=== PATIENT | male | born 1960 | race Caucasian/White ===

== ENCOUNTER 2019-06-20 15:18 | Inpatient (IN) | payer MEDICARE, OTHER ==
[~2019-06-20] VITALS: Ht 182.9 cm; Wt 108.9 kg
[2019-06-20] MEDS ORDERED: LURA40TA PO (15:54)
[2019-06-20] MEDS ORDERED: RISP4TAB17 PO (15:54)
[2019-06-20 16:58] VITALS: BP 131/71
[2019-06-20] MEDS ORDERED: LORAZEPAM 0.5 MG TABLET PO PRN (17:00)
[2019-06-20] MEDS ORDERED: ZOLPIDEM TARTRATE 5 MG TABLET PO PRN (17:00)
[2019-06-20] MEDS ORDERED: MAG HYDROX/AL HYDROX/SIMETH 30 ML UDC PO PRN (17:00)
[2019-06-20] MEDS ORDERED: MAGNESIUM HYDROXIDE 30 ML UDC PO PRN (17:00)
[2019-06-20] MEDS ORDERED: BLOOD SUGAR DIAGNOSTIC 1 EACH STRIP IN ONE (17:00)
[2019-06-20] MEDS ORDERED: ACETAMINOPHEN 325 MG TABLET PO PRN (17:00)
--- NOTE | 2019-06-20 17:11 | NUR ---
RN NOTE: BS 97; NO INSULIN NEEDED
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
[2019-06-20 20:49] VITALS: BP 145/95
[2019-06-20] MEDS: CEPHALEXIN MONOHYDRATE 500 MG CAPSULE PO SCH ×2 (22:30→23:13)
--- NOTE | 2019-06-20 23:19 | NUR ---
CEPHALEXIN 500 MG CAP PO REFUSED, PATIENT STATED, " I CAN'T TAKE THAT, I'M GOING TO ." EXPLAINED THE BENEFITS OF TAKING THE MEDICATION, STILL REFUSED.
--- NOTE | 2019-06-20 23:22 | NUR ---
OFFERED SLEEPING MEDICATION, PATIENT REFUSED. HE STATED, " GIVE ME 5 MINS. " PATIENT NEVER ASK AGAIN.
[2019-06-21 07:29] LABS: ALBUMIN 2.7 g/dL (3.4-5.0); BILIRUBIN,TOTAL 1.2 mg/dL (0.2-1.0); CALCIUM, SERUM 8.3 mg/dL (8.5-10.1); TOTAL PROTEIN, SERUM 6.4 g/dL (6.4-8.2)
[2019-06-21 07:32] LABS: CHOLESTEROL 121 mg/dL (<200); HDL CHOLESTEROL 30 mg/dL (40-60); LDL 77 mg/dL (0-99); TRIGLYCERIDES 90 mg/dL (30-150)
[2019-06-21 08:00] VITALS: BP 135/73
[2019-06-21] MEDS: ASPIRIN 81 MG TAB.CHEW PO SCH (08:53)
[2019-06-21] MEDS: CEPHALEXIN MONOHYDRATE 500 MG CAPSULE PO SCH ×2 (08:53→21:00)
[2019-06-21] MEDS: POTASSIUM CHLORIDE 20 MEQ TAB.PRT.SR PO SCH ×3 (09:30→11:30)
[2019-06-21] MEDS: risperiDONE 1 MG TABLET PO SCH ×2 (11:00→21:00)
--- NOTE | 2019-06-21 11:15 | NUR ---
RN NOTES Patient refused medication x3. All of his morning medications and potassium supplements.
[2019-06-21 16:00] VITALS: BP 149/73
--- NOTE | 2019-06-21 19:10 | NUR ---
RECEIVED PATIENT LYING IN BED WITH NO RESPIRATORY DISTRESS. CALM. NO COMPLAIN OF PAIN. DOES NOT ANSWER WHEN ASKED.
[2019-06-21 20:26] VITALS: BP 154/85
--- NOTE | 2019-06-21 21:00 | NUR ---
PATIENT REFUSED ALL HIS HS MEDS. VOIDED ON THE URINAL, 400ML, CLEAR, TEA-COLORED URINE.
[2019-06-22 08:00] VITALS: BP 151/81
[2019-06-22] MEDS: risperiDONE 1 MG TABLET PO SCH ×2 (09:00→21:00)
[2019-06-22] MEDS: ASPIRIN 81 MG TAB.CHEW PO SCH (09:00)
[2019-06-22] MEDS: CEPHALEXIN MONOHYDRATE 500 MG CAPSULE PO SCH ×2 (09:00→21:00)
--- NOTE | 2019-06-22 09:30 | NUR ---
GPS RN NOTES-- PT NOTED WITH NONCOMPLIANCE M/B REFUSAL OF RISPERDONE, ASA, AND KEFLEX. EXPLAINED THE RISKS AND BENEFITS X3, STILL NOTED WITH NONCOMPLIANCE.
[2019-06-22 16:00] VITALS: BP 120/75
--- NOTE | 2019-06-22 17:26 | NUR ---
GPS RN NOTES-- PT REFUSED CARE ALL DAY, NONCOMPLIANT WITH PLAN OF CARE. CHARGE NURSE NOTIFIED. WILL CONTINUE TO MONITOR.
[2019-06-22 20:00] VITALS: BP 142/86
--- NOTE | 2019-06-22 21:36 | NUR ---
GPS RN NOTE: PATIENT REFUSED KEFLEX AND RISPERDAL, EXPLAINED THE RISK AND BENEFITS X 3 ATTEMPTS, PATIENT STILL REFUSED, WILL CONTINUE TO MONITOR Q15 MINS FOR SAFETY
[2019-06-23 08:00] VITALS: BP 155/81
[2019-06-23] MEDS: CEPHALEXIN MONOHYDRATE 500 MG CAPSULE PO SCH ×2 (09:00→21:00)
[2019-06-23] MEDS: ASPIRIN 81 MG TAB.CHEW PO SCH (09:00)
[2019-06-23] MEDS: risperiDONE 1 MG TABLET PO SCH ×2 (09:00→21:00)
--- NOTE | 2019-06-23 09:24 | NUR ---
GPS/RN-NOTES PATIENT REFUSED ALL MEDICATIONS DESPITE EXPLANATIONS RISK AND BENEFITS. OFFERED X3
[2019-06-23 16:00] VITALS: BP 155/82
[2019-06-23 20:13] VITALS: BP 170/80
[2019-06-24 08:00] VITALS: BP 150/89
[2019-06-24] MEDS: risperiDONE 1 MG TABLET PO SCH ×2 (10:02→21:23)
[2019-06-24] MEDS: CEPHALEXIN MONOHYDRATE 500 MG CAPSULE PO SCH ×2 (10:03→21:23)
[2019-06-24] MEDS: ASPIRIN 81 MG TAB.CHEW PO SCH (10:03)
--- NOTE | 2019-06-24 10:54 | NUR ---
INITIAL DISCHARGE PLAN: The patient currently resides in his father's [employer] [phone] garage at [address] [place] [address]. However, his father is an 83 year old elderly man and expressed wanting placement for pt. as he cannot care for his son. SW will help form a safe and proper discharge in collaboration with .
[2019-06-24] MEDS: AMLODIPINE BESYLATE 5 MG TABLET PO SCH (14:10)
[2019-06-24 16:00] VITALS: BP 130/69
--- NOTE | 2019-06-24 19:30 | NUR ---
GPS RN NOTE, RECEIVED PATIENT AWAKE AND IN BED, NO S/S OR COMPLAINTS OF PAIN AT THIS TIME. PATIENT IS DISPLAYING NO S/S OF APPARENT DISTRESS AT THIS TIME. PATIENT BREATHING IS UNLABORED WITH EQUAL RISE AND FALL OF THE CHEST. PATIENT IS ALERT AND ORIENTED X 1 ON ROOM AIR WITH A SPO2 OF 99 %. PATIENT IS MED COMPLAINT, CONFUSED, DISORGANIZED, ANXIOUS, COOPERATIVE, AND NEEDS REORIENTATION. PATIENT DENIES SUICIDE AND HOMICIDAL IDEATIONS AT THIS TIME. PATIENT ASSISTED WITH TURNING AND REPOSITIONING Q2HR AND PRN FOR COMFORT AND CIRCULATION. PATIENT HAS NO NEEDS AT THIS TIME. PATIENT EDUCATED ON THE USE OF THE CALL GRACE. PATIENT BED SIDE RAILS ARE UP X 2 FOR SAFETY, BED IS LOCKED, AND LOW WILL CONTINUE TO MONITOR AND MAINTAIN SAFETY.
[2019-06-24 19:58] VITALS: BP 118/85
[2019-06-25 08:00] VITALS: BP 154/86
[2019-06-25] MEDS: AMLODIPINE BESYLATE 5 MG TABLET PO SCH (09:47)
[2019-06-25] MEDS: ASPIRIN 81 MG TAB.CHEW PO SCH (09:47)
[2019-06-25] MEDS: CEPHALEXIN MONOHYDRATE 500 MG CAPSULE PO SCH ×2 (09:47→21:39)
[2019-06-25] MEDS: risperiDONE 1 MG TABLET PO SCH ×2 (09:47→21:39)
--- NOTE | 2019-06-25 15:19 | NUR ---
MANAN faxed SNF referral to [facility] Address: [place] [address] for review.
[2019-06-25 16:00] VITALS: BP 113/65
--- NOTE | 2019-06-25 19:30 | NUR ---
PS RN NOTE, RECEIVED PATIENT AWAKE AND IN BED, NO S/S OR COMPLAINTS OF PAIN AT THIS TIME. PATIENT IS DISPLAYING NO S/S OF APPARENT DISTRESS AT THIS TIME. PATIENT BREATHING IS UNLABORED WITH EQUAL RISE AND FALL OF THE CHEST. PATIENT IS ALERT AND ORIENTED X 1 ON ROOM AIR WITH A SPO2 OF 99 %. PATIENT IS MED COMPLAINT, CONFUSED, DISORGANIZED, ANXIOUS, COOPERATIVE, RESPONDING TO INTERNAL STIMULI, AND NEEDS REORIENTATION. PATIENT DENIES SUICIDE AND HOMICIDAL IDEATIONS AT THIS TIME. PATIENT ASSISTED WITH TURNING AND REPOSITIONING Q2HR AND PRN FOR COMFORT AND CIRCULATION. PATIENT HAS NO NEEDS AT THIS TIME. PATIENT EDUCATED ON THE USE OF THE CALL GRACE. PATIENT BED SIDE RAILS ARE UP X 2 FOR SAFETY, BED IS LOCKED, AND LOW WILL CONTINUE TO MONITOR AND MAINTAIN SAFETY.
[2019-06-25 21:42] VITALS: BP 111/53
[2019-06-26 09:12] VITALS: BP 128/55
[2019-06-26] MEDS: CEPHALEXIN MONOHYDRATE 500 MG CAPSULE PO SCH ×2 (09:17→20:50)
[2019-06-26] MEDS: risperiDONE 1 MG TABLET PO SCH ×2 (09:17→20:52)
[2019-06-26] MEDS: AMLODIPINE BESYLATE 5 MG TABLET PO SCH (09:17)
[2019-06-26] MEDS: ASPIRIN 81 MG TAB.CHEW PO SCH (09:17)
--- NOTE | 2019-06-26 13:00 | NUR ---
RELOCATED TO RM. 213-2.
--- NOTE | 2019-06-26 13:58 | NUR ---
GEOUP NOTE Goal: Patient will attend group being held today from 11AM-11:45AM in the activities room and participate and/or actively listen to peers and be respectful. Intervention: SW invited patient to attend group session with peers regarding their support system. SW respected patient�s self-determination and will continue to invite patient to group. Response: Patient declined to participate in today�s group social service liaison session by stating, "I don't want to talk to anyone". Plan: Patient will be invited to attend next social service liaison group session held.
[2019-06-26 16:00] VITALS: BP 135/67
--- NOTE | 2019-06-26 18:30 | NUR ---
NO CHANGE IN STATUS.
[2019-06-26 20:11] VITALS: BP 140/78
[2019-06-27 08:00] VITALS: BP 137/69
[2019-06-27] MEDS: CEPHALEXIN MONOHYDRATE 500 MG CAPSULE PO SCH ×2 (08:45→21:35)
[2019-06-27] MEDS: ASPIRIN 81 MG TAB.CHEW PO SCH (08:45)
[2019-06-27] MEDS: risperiDONE 1 MG TABLET PO SCH ×2 (08:45→21:35)
[2019-06-27] MEDS: AMLODIPINE BESYLATE 5 MG TABLET PO SCH (08:46)
[2019-06-27 16:00] VITALS: BP 124/69
[2019-06-27 20:00] VITALS: BP 111/54
[2019-06-28 08:00] VITALS: BP_SYST 111; BP_SYST 138; BP_DIAS 60; BP_DIAS 71
[2019-06-28] MEDS: CEPHALEXIN MONOHYDRATE 500 MG CAPSULE PO SCH ×2 (08:13→21:19)
[2019-06-28] MEDS: risperiDONE 1 MG TABLET PO SCH ×2 (08:13→21:19)
[2019-06-28] MEDS: ASPIRIN 81 MG TAB.CHEW PO SCH (08:14)
[2019-06-28] MEDS: AMLODIPINE BESYLATE 5 MG TABLET PO SCH (08:14)
[2019-06-28 08:17] LABS: CALCIUM, SERUM 7.5 mg/dL (8.5-10.1); CREATININE 0.9 mg/dL (0.6-1.3); POTASSIUM 3.2 mmol/L (3.5-5.1)
[2019-06-28] MEDS: POTASSIUM CHLORIDE 20 MEQ TAB.PRT.SR PO SCH ×2 (10:17→11:55)
--- NOTE | 2019-06-28 11:37 | NUR ---
SW received a call from Catherine, high school admissions representative [facility] Address: [place] [address] stating pt cannot be accepted due to him not having a skilled need.
--- NOTE | 2019-06-28 11:40 | NUR ---
MANAN faxed SNF referral to CJ, library services coordinator at [facility] Address: [place] [address] for review.
--- NOTE | 2019-06-28 11:55 | NUR ---
gps distributor sales consultant: notes potassium chloride 20meq 2nd dose dropped, unable to pull med. re-order last dose of k dur 20meq x 1.
[2019-06-28] MEDS ORDERED: POTASSIUM CHLORIDE 20 MEQ TAB.PRT.SR PO ONE (12:00)
--- NOTE | 2019-06-28 12:15 | NUR ---
SW received a call from JOSHUA, campus recruiting coordinator at [facility] Address: [place] [address] stating pt has been accepted.
[2019-06-28 16:00] VITALS: BP 119/56
[2019-06-28 20:00] VITALS: BP 111/72
[2019-06-29 07:51] LABS: CALCIUM, SERUM 7.8 mg/dL (8.5-10.1); CREATININE 0.9 mg/dL (0.6-1.3); POTASSIUM 3.6 mmol/L (3.5-5.1)
[2019-06-29 08:00] VITALS: BP 133/80
[2019-06-29] MEDS: ASPIRIN 81 MG TAB.CHEW PO SCH (09:50)
[2019-06-29] MEDS: CEPHALEXIN MONOHYDRATE 500 MG CAPSULE PO SCH (09:50)
[2019-06-29] MEDS: AMLODIPINE BESYLATE 5 MG TABLET PO SCH (09:50)
[2019-06-29] MEDS: risperiDONE 1 MG TABLET PO SCH ×2 (09:50→21:15)
[2019-06-29 16:00] VITALS: BP 112/70
--- NOTE | 2019-06-29 18:00 | NUR ---
QUIET,MOSTLY NON VERBAL-KEEPS TO SELF.ISOLATIVE,IN RM.
--- NOTE | 2019-06-29 19:30 | NUR ---
shelia initial notes: received report form sushma rocha rn. met with pt, a/o x1 to self only, on ra respirations even and unlabored. pt uncooperative, per report been non compliant with meds. with aggressive behavior, uses urinal, can get out of bed with assistance. pt refusing skin assessment and mrsa swab test. pt appears calm and comfortable at this time, no facial grimace noted. safety precautions for fall initiated, call light in reach, will continue monitoring pt [id number] for safety and any changes in behavior. Addendum: 06/29/19 at 2133 by PHI KOENIG RN correction of entry: shelia initial notes: received report form sushma rocha rn. met with pt, a/o x1 to self only, on ra respirations even and unlabored. pt uncooperative, per report been non compliant with meds. with aggressive behavior, uses urinal, can get out of bed with assistance. pt refusing skin assessment and mrsa swab test. pt appears calm and comfortable at this time, no facial grimace noted. safety precautions for fall initiated, will continue monitoring pt [id number] for safety and any changes in behavior.
--- NOTE | 2019-06-29 19:31 | NUR ---
rn initial notes: received report form sushma rocha rn. met with pt, a/o x1 to self only, on ra respirations even and unlabored. pt uncooperative, per report been non compliant with meds. with aggressive behavior, uses urinal, can get out of bed with assistance. pt refusing skin assessment and mrsa swab test. pt appears calm and comfortable at this time, no facial grimace noted. safety precautions for fall initiated, will continue monitoring pt [id number] for safety and any changes in behavior.
[2019-06-29 20:00] VITALS: BP 127/65
--- NOTE | 2019-06-29 20:20 | NUR ---
occupational health rn notes: pt moved to 315-1,gps ov/3west. all belongings sent with the pt upon transfer, chart handed over to aboriginal community council member.pt a/o x1 to name only,appears calm and comfortable. no facial grimace noted. report given to shelia spangler for continuity of care.
[2019-06-29 20:30] VITALS: BP 126/73
--- NOTE | 2019-06-30 06:09 | NUR ---
MS RN NOTES AWAKE & RESPONSIVE. NOT IN ANY DISTRESS. NO SOB NOTED. DENIES ANY PAIN OR DISCOMFORT AT THIS TIME. SLEPT FOR 3 HOURS ON & OFF. MONITORED ACCORDINGLY. CALL LIGHT WITHIN REACH. BED IN LOWEST POSITION. SR UP X 2 WITH SITTER AT BEDSIDE FOR SAFETY. WILL ENDORSE TO NEXT SHIFT.
--- NOTE | 2019-06-30 07:15 | NUR ---
GPS RN OPENING NOTES RECEIVED PT IN BED, AWAKE, A/O X2-3. PT TOLERATING RA, WITH NO ACUTE RESPIRATORY DISTRESS NOTED. PT DENIES PAIN OR ANY DISCOMFORT. ALSO DENIES CONCERNS OR QUESTIONS AT THIS TIME. NO PIV NOTED. HAS 1:1 SITTER AT BEDSIDE. PT KEPT COMFORTABLE. PT'S BED IN LOWEST, LOCKED POSITION WITH SR X2. WILL CONTINUE PLAN OF CARE.
[2019-06-30 08:00] VITALS: BP 128/64
[2019-06-30] MEDS: AMLODIPINE BESYLATE 5 MG TABLET PO SCH (08:20)
[2019-06-30] MEDS: ASPIRIN 81 MG TAB.CHEW PO SCH (08:20)
[2019-06-30] MEDS: risperiDONE 1 MG TABLET PO SCH ×2 (08:21→20:30)
--- NOTE | 2019-06-30 18:31 | NUR ---
GPS RN CLOSING NOTES PT REMAINS IN BED, AWAKE, A/O X2-3. PT TOLERATING RA, WITH NO ACUTE RESPIRATORY DISTRESS NOTED. PT DENIES PAIN OR ANY DISCOMFORT.NO PIV NOTED. HAS 1:1 SITTER AT BEDSIDE. ALL NEEDS AND CARE ATTENDED. PT KEPT COMFORTABLE. PT'S BED IN LOWEST, LOCKED POSITION WITH SR X2. WILL ENDORSE TO INCOMING NIGHT NURSE FOR KENNY.
--- NOTE | 2019-06-30 19:05 | NUR ---
RN GPS OVERFLOW NOTES RECEIVED PATIENT IN BED AWAKE ALERT AND ORIENTED X2-3, ABLE TO MAKE NEEDS KNOWN, RESPIRATIONS EVEN AND UNLABORED WITH EQUAL RISE AND FALL OF CHEST, DENIES ANY PAIN OR DISCOMFORT AT THIS TIME, ORIENTED TO STAFF AND CALL LIGHT AND KEPT WITHIN REACH, SAFETY PRECAUTIONS IN PLACE, LOW BED AND LOCKED, ON 1:1 SITTER MONITORING , SITTER AT BEDSIDE, AT THIS TIME DENIES ANY SI/HI. FLUIDS OFFERED, SNACKS OFFERED,ALL NEEDS ATTENDED WILL CONTINUE TO MONITOR AND CONTINUE Q15MIN CHECKS. REMAINS CALM AND COMFORTABLE AT THIS TIME.
[2019-06-30 20:00] VITALS: BP 135/61
--- NOTE | 2019-06-30 20:37 | NUR ---
RN GPS NOTES PATIENT MADE AWARE OF MONDAY SKIN ASSESSMENT AND PHOTOS IF WOUNDS NOTES,MADE AWARE OF RISKS AND BENEFITS, PATIENT REFUSED X 3, DESPITE EXPLANATION STATES " I DONT WANT WOUND PHOTOS OR ASSESSMENT"
--- NOTE | 2019-07-01 05:18 | NUR ---
RN GPS NOTES OFFERED TO CHANGE LINENS, CHANGE GOWN PROVIDE BED BATH PATIENT REFUSED.
[2019-07-01 06:38] VITALS: BP 135/61
--- NOTE | 2019-07-01 06:46 | NUR ---
RN GPS OVERFLOW CLOSING NOTES PATIENT IN BED AWAKE ALERT AND ORIENTED X2-3, ABLE TO MAKE NEEDS KNOWN, RESPIRATIONS EVEN AND UNLABORED WITH EQUAL RISE AND FALL OF CHEST, DENIES ANY PAIN OR DISCOMFORT AT THIS TIME, CALL LIGHT KEPT WITHIN REACH, SAFETY PRECAUTIONS IN PLACE, LOW BED AND LOCKED, ON 1:1 SITTER MONITORING , SITTER AT BEDSIDE, AT THIS TIME DENIES ANY SI/HI. FLUIDS OFFERED, SNACKS OFFERED,ALL NEEDS ATTENDED WILL CONTINUE TO MONITOR AND CONTINUE Q15MIN CHECKS. REMAINS CALM AND COMFORTABLE AT THIS TIME WILL ENDORSE TO ONCOMING SHIFT PATIENT SLEPT 8 HOURS.
--- NOTE | 2019-07-01 07:25 | NUR ---
GPS OVERFLOW OPENING RN NOTE PATIENT IN BED RESTING COMFORTABLY, BREATHING ON ROOM AIR. PATIENT BREATHING IS EVEN AND UNLABORED. PATIENT IN NO ACUTE DISTRESS. NO SOB NOTED. PATIENT IS ALERT AND ORIENTED X 2-3. PATIENT VERBALIZED NEEDS, NEEDS ADDRESSED. PATIENT IS ON A 1:1 SITTER. SAFETY PRECAUTIONS IN PLACE. PATIENT BED IS LOCKED AND IN LOWEST POSITION. CALL LIGHT WITHIN REACH. WILL CONTINUE TO MONITOR FREQUENTLY.
[2019-07-01 08:00] VITALS: BP 125/61
[2019-07-01] MEDS: ASPIRIN 81 MG TAB.CHEW PO SCH (09:07)
[2019-07-01] MEDS: AMLODIPINE BESYLATE 5 MG TABLET PO SCH (09:08)
[2019-07-01] MEDS: risperiDONE 1 MG TABLET PO SCH ×2 (09:08→21:23)
--- NOTE | 2019-07-01 15:00 | NUR ---
GROUP NOTE: SW prompted pt to participate in group session on this present day discussing "current issues you are having while being on a hold." Pt stated that he currently did not have any issues and that he was okay and did not need to share anything else.
--- NOTE | 2019-07-01 15:35 | NUR ---
MANAN contacted pts father Jose [phone] and left a voicemail informing him pt [facility].
[2019-07-01 16:00] VITALS: BP 114/56
--- NOTE | 2019-07-01 18:41 | NUR ---
GPS OVERFLOW CLOSING NOTES PATIENT IN BED RESTING COMFORTABLY. PATIENT IN NO ACUTE DISTRESS. NO SOB NOTED. PATIENT ABLE TO VERBALIZE NEEDS, NEEDS ADDRESSED. PATIENT BREATHING IS EVEN AND UNLABORED. PATIENT MAINTAINED ON A 1:1 SITTER. PATIENT KEPT CLEAN, DRY, AND COMFORTABLE THROUGHOUT SHIFT. OFFLOADED EXTREMITIES MUCH PATIENT ALLOWED. ALL NURSING NEEDS MET. SAFETY PRECAUTIONS IN PLACE. PATIENT BED IS LOCKED AND IN LOWEST POSITION. CALL LIGHT WITHIN REACH. WILL ENDORSE CARE TO PM SHIFT FOR KENNY.
[2019-07-01 20:00] VITALS: BP 93/59
--- NOTE | 2019-07-01 22:20 | NUR ---
RN GPS NOTES PATIENT TRANSFERRED BACK TO GPS IN STABLE CONDITION,REPORT GIVEN TO TY SIMMONS FOR CONTINUITY OF CARE.NO CHANGES NOTED THROUGH SHIFT.
--- NOTE | 2019-07-01 22:25 | NUR ---
GPS/RN RECEIVED PT. FROM [facility] VIA WHEELCHAIR. RECEIVED REPORT FROM TROY ABARCA. PT. IS AWAKE, ALERT AND ORIENTED X3. BREATHING EVEN AND UNLABORED ON ROOM AIR. NO SOB, RESPIRATORY DISTRESS OR COMPLAINTS OF PAIN NOTED AT THIS TIME. ORIENTED PT. TO ROOM. PT. IS CALM AND COOPERATIVE. DENIES ANY SI/HI AT THIS TIME. WILL CONTINUE TO MONITOR.
--- NOTE | 2019-07-02 07:30 | NUR ---
RECEIVED PT. STABLE.VS STABLE.MED COMPLIANT.
[2019-07-02 09:26] VITALS: BP 133/78
[2019-07-02 10:05] VITALS: BP 133/78
[2019-07-02] MEDS: AMLODIPINE BESYLATE 5 MG TABLET PO SCH (10:05)
[2019-07-02] MEDS: risperiDONE 1 MG TABLET PO SCH (10:05)
[2019-07-02] MEDS: ASPIRIN 81 MG TAB.CHEW PO SCH (10:08)
--- NOTE | 2019-07-02 11:03 | NUR ---
DISCHARGE NOTE: Pt discharging at 1:00pm via [facility]BULNZ to [facility] [address] [place], [address] . Pts father Matias [phone] has been notified. Pts mood appears euthymic with congruent affect. Pt denied visual/auditory hallucinations an denied suicidal/homicidal ideation. Pt will be under the care of [employer] Offbearer: Dr Dawn Address: [address] [place] [address] and Psychiatrist: Dr. Ramey [address] [address] [phone]. . The multidisciplinary exit care form was done, printed, signed, and given to the patient.
--- NOTE | 2019-07-02 12:43 | NUR ---
REFUSED INITIAL SKIN ASSESSMENT AND DISCHARGE ASSESSMENT WELL.
--- NOTE | 2019-07-02 13:00 | NUR ---
ALL PAPERS SIGNED.REPORT CALLED TO AKASH AT FACILITY.
--- NOTE | 2019-07-02 13:15 | NUR ---
DRIVERS HERE,REPORT GIVEN-PT. DENIES SUICIDAL OR HOMICIDAL IDEATION WELL HE HAS NO AUDITORY OR VISUAL HALLUCINATIONS.TAKEN VIA AMBULANCE TO FACILITY.
== END 2019-07-02 13:20 | DRG 885 ==
LOC: CLIGERO 15:18 → GPS 15:51 → GPSOV 06-29 20:16 → CSC3 06-29 20:56 → GPSOV 06-29 21:00 → GPS 07-01 22:28
PROVIDERS: ADMIT Psychiatry & Neurology Psychiatry; ATTEND Nurse Practitioner Acute Care
DX: F20.0 Paranoid schizophrenia (principal); N17.0 Acute kidney failure with tubular necrosis; G93.41 Metabolic encephalopathy; N39.0 Urinary tract infection, site not specified; D68.59 Other primary thrombophilia; F31.9 Bipolar disorder, unspecified; E66.01 Morbid (severe) obesity due to excess calories; Z68.32 Body mass index [BMI] 32.0-32.9, adult; I10 Essential (primary) hypertension
CPT/HCPCS: 36415; 80048-TC; 80053-TC; 80061-TC; 82962-TC; 97116-TC; 97530-TC

== ENCOUNTER 2022-09-23 18:30 | Inpatient (IN) | payer MEDICAID, MEDICARE ==
[~2022-09-23] VITALS: Ht 175.3 cm; Wt 124.7 kg
[~2022-09-23 18:30] MED LIST: LURA40TA PO; RISP4TAB70 PO
--- NOTE | 2022-09-23 18:44 | NUR ---
BIB [facility] FOR INCREASED CONFUSION AND FREQUENT URINATION PER FACILITY STAFF
--- NOTE | 2022-09-23 18:52 | NUR ---
[facility] [phone]
--- NOTE | 2022-09-23 18:56 | NUR ---
COVID TEST COLLECTED AND SENT
--- NOTE | 2022-09-23 19:43 | NUR ---
RECEIVED PT IN ROOM 2. PT IS ALERT, RESTING IN BED. FACILITY STAFF AT BEDSIDE. DENIES ANY DISCOMFORT AT THIS TIME. PT UNABLE TO PROVIDE URINE AT THIS TIME. PROVIDED HIM WITH WATER AND URINAL AT BEDSIDE. CONNECTED TO MONITOR. RR EVEN AND NON LABORED. WILL CONTINUE TO MONITOR
[2022-09-23 19:57] LABS: CALCIUM, SERUM 8.9 mg/dL (8.5-10.1); CARBON DIOXIDE 25 mmol/L (21-32); CHLORIDE 106 mmol/L (98-107); CREATININE 1.7 mg/dL (0.6-1.3); GLUCOSE 142 mg/dL (74-106); POTASSIUM 4.4 mmol/L (3.5-5.1); SODIUM SERUM 143 mmol/L (136-145); UREA NITROGEN, BLOOD 17 mg/dL (7-18)
[2022-09-23 20:03] LABS: ALANINE AMINOTRANSFERASE 36 U/L (12-78); ALBUMIN 3.6 g/dL (3.4-5.0); ALCOHOL, BLOOD < 3 mg/dL (0-0); ALKALINE PHOSPHATASE 106 U/L (46-116); ASPARTATE AMINOTRANSFERASE 18 U/L (15-37); BILIRUBIN,DIRECT 0.1 mg/dL (0.0-0.2); BILIRUBIN,TOTAL 0.4 mg/dL (0.2-1.0); TOTAL PROTEIN, SERUM 7.9 g/dL (6.4-8.2)
[2022-09-23 20:05] LABS: ACETAMINOPHEN 0 ug/ml (10-30)
[2022-09-23 20:08] LABS: BASOPHILS % (AUTO) 0.5 % (0.0-2.0); EOSINOPHILS % (AUTO) 2.1 % (0.0-6.0); HEMATOCRIT 44 % (39-51); LYMPHOCYTES # (AUTO) 2.2 K/uL (0.8-4.8); LYMPHOCYTES % (AUTO) 24.6 % (20.0-44.0); MEAN CORPUSCULAR HGB CONC 34 g/dl (31.0-36.0); MEAN CORPUSCULAR VOLUME 84 fL (80-96); MONOCYTES # (AUTO) 0.9 K/uL (0.1-1.30); MONOCYTES % (AUTO) 9.7 % (2.0-12.0); NEUTROPHILS # (AUTO) 5.7 K/uL (1.8-8.9); NEUTROPHILS % (AUTO) 63.1 % (43.0-81.0); PLATELET COUNT (AUTO) 249 K/uL (150-450); RED BLOOD CELL COUNT(AUTO) 5.29 MIL/uL (4.5-6.0)
--- NOTE | 2022-09-23 20:39 | NUR ---
URINE COLLECTED AND SENT TO LAB
[2022-09-23 21:20] LABS: BILIRUBIN,URINE NEGATIVE (NEGATIVE); COLOR,URINE YELLOW (YELLOW); LEUKOCYTE ESTERASE ,URINE NEGATIVE (NEGATIVE); NITRITE, URINE NEGATIVE (NEGATIVE); PROTEIN,URINE NEGATIVE (NEGATIVE); UGLUCOSE NEGATIVE (NEGATIVE); UROBILINOGEN,URINE 0.2 EU/dL (0.2)
--- NOTE | 2022-09-23 22:09 | NUR ---
PAIGE ([facility]) [phone]
[2022-09-23 22:12] LABS: BACTERIA,URINE None seen /HPF (None Seen); MUCUS,URINE Few /LPF (None Seen); RBC,URINE 0-2 /HPF (0-2); SQUAMOUS EPITHELIAL CELL,UR 0-2 /HPF (None Seen); WBC,URINE 0-2 /HPF (0-3)
--- NOTE | 2022-09-23 22:31 | NUR ---
ALBINO AT BEDSIDE FOR CRISIS EVAL
[2022-09-23] MEDS ORDERED: OLANZAPINE 5 MG TABLET PO ONE (23:00)
[2022-09-23] MEDS ORDERED: HALOPERIDOL LACTATE INJ 5 MG/ML VIAL IM ONE (23:00)
[2022-09-23] MEDS ORDERED: diphenhydrAMINE HCL 50 MG/ML VIAL IM ONE (23:00)
[2022-09-23] MEDS ORDERED: HYDROCODONE/APAP 5/325MG TABLET PO ONE (23:00)
[2022-09-23] MEDS ORDERED: LORAZEPAM INJ 2 MG/ML VIAL IM ONE (23:00)
--- NOTE | 2022-09-23 23:54 | NUR ---
GPS 215-1
--- NOTE | 2022-09-24 00:04 | NUR ---
REPORT GIVEN TO TROY LOPEZ FOR KENNY.
[2022-09-24] MEDS ORDERED: HYDROCODONE/APAP 5/325MG TABLET ONE (00:07)
--- NOTE | 2022-09-24 00:17 | NUR ---
PT BEING TRANSPORTED TO UNIT ON WHEELCHAIR. PT IS IN STABLE CONDITION.
[2022-09-24 00:24] VITALS: BP 114/55
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
[2022-09-24] MEDS ORDERED: ACETAMINOPHEN 325 MG TABLET PO PRN (00:30)
[2022-09-24] MEDS ORDERED: ZOLPIDEM TARTRATE 5 MG TABLET PO PRN (00:30)
[2022-09-24] MEDS ORDERED: MAG HYDROX/AL HYDROX/SIMETH 30 ML UDC PO PRN (00:30)
[2022-09-24] MEDS ORDERED: MAGNESIUM HYDROXIDE 30 ML UDC PO PRN (00:30)
[2022-09-24] MEDS ORDERED: BLOOD SUGAR DIAGNOSTIC 1 EACH STRIP IN ONE (00:45)
[2022-09-24] MEDS ORDERED: CLON0.1T PO (00:46)
[2022-09-24] MEDS ORDERED: POTA20TA83 PO (00:47)
[2022-09-24] MEDS ORDERED: HALO2TAB PO (00:48)
[2022-09-24] MEDS ORDERED: AMLO-212 PO (00:50)
[2022-09-24] MEDS ORDERED: DIVA-78 PO (00:51)
[2022-09-24] MEDS ORDERED: FURO40TA5 PO (00:52)
[2022-09-24] MEDS ORDERED: ARIP10TA9 PO (00:54)
[2022-09-24 08:00] VITALS: BP 127/62
[2022-09-24] MEDS: FUROSEMIDE 40 MG TABLET PO SCH (08:17)
[2022-09-24] MEDS: POTASSIUM CHLORIDE 20 MEQ TAB.PRT.SR PO SCH (08:17)
[2022-09-24] MEDS: AMLODIPINE BESYLATE 5 MG TABLET PO SCH (08:18)
[2022-09-24] MEDS: CLONIDINE HCL 0.1 MG TABLET PO SCH (08:18)
--- NOTE | 2022-09-24 09:00 | NUR ---
RN NOTE- PT IS ALERT ORIENTED TO PERSON PLACE PURPOSE, FLAT AFFECT INTERACTIVE ON QUERY, ISOLATIVE AND WITHDRAWN. PT DIRECTABLE AND MED COMPLIANT. DENIES SI [facility]
[2022-09-24] MEDS: DIVALPROEX SODIUM 250 MG TABLET.DR PO SCH ×3 (09:34→16:06)
[2022-09-24] MEDS: risperiDONE 1 MG TABLET PO SCH ×2 (09:35→16:06)
[2022-09-24 16:00] VITALS: BP 144/73
[2022-09-24 20:00] VITALS: BP 144/67
--- NOTE | 2022-09-24 20:42 | NUR ---
RN NOTES: RECEIVED PT. AWAKE ALERT IN THE ROOM ,EASILY AGITATED , DISORGNIZED,GUARDED, ISOLATIVE AND WITHDRAWN.CALM COOPERTIVE AT THIS TIME, ALL NEEDS ATTENDED AND ANTICIPATED. ENCOURAGED PT. TO VERBALIZED ANY FEELING OR CONCERN ,WILL CONTINUE MONITORING Q15MIN FOR SAFETY AND BEHAVIOR.
[2022-09-25 07:38] LABS: BASOPHILS # (AUTO) 0.1 K/uL (0.0-0.2); BASOPHILS % (AUTO) 0.7 % (0.0-2.0); EOSINOPHILS % (AUTO) 2.9 % (0.0-6.0); HEMATOCRIT 40 % (39-51); HEMOGLOBIN 13.6 g/dL (13.5-17.5); LYMPHOCYTES # (AUTO) 2.1 K/uL (0.8-4.8); MEAN CORPUSCULAR HGB CONC 34 g/dl (31.0-36.0); MEAN CORPUSCULAR VOLUME 84 fL (80-96); MONOCYTES # (AUTO) 0.7 K/uL (0.1-1.30); MONOCYTES % (AUTO) 8.5 % (2.0-12.0); NEUTROPHILS # (AUTO) 5.1 K/uL (1.8-8.9); NEUTROPHILS % (AUTO) 61.9 % (43.0-81.0); PLATELET COUNT (AUTO) 210 K/uL (150-450); RED BLOOD CELL COUNT(AUTO) 4.82 MIL/uL (4.5-6.0); WHITE BLOOD COUNT (AUTO) 8.2 K/uL (4.3-11.0)
[2022-09-25 07:51] LABS: CALCIUM, SERUM 8.5 mg/dL (8.5-10.1); CREATININE 1.2 mg/dL (0.6-1.3); POTASSIUM 4.4 mmol/L (3.5-5.1)
[2022-09-25 08:00] VITALS: BP 139/76
--- NOTE | 2022-09-25 09:00 | NUR ---
RN NOTE- RN NOTE- PT IS ALERT ORIENTED TO PERSON PLACE PURPOSE, FLAT AFFECT INTERACTIVE ON QUERY, ISOLATIVE AND WITHDRAWN. PT DIRECTABLE AND MED COMPLIANT. DENIES SI [facility]
[2022-09-25] MEDS: FUROSEMIDE 40 MG TABLET PO SCH (09:44)
[2022-09-25] MEDS: AMLODIPINE BESYLATE 5 MG TABLET PO SCH (09:44)
[2022-09-25] MEDS: CLONIDINE HCL 0.1 MG TABLET PO SCH (09:44)
[2022-09-25] MEDS: DIVALPROEX SODIUM 250 MG TABLET.DR PO SCH ×3 (09:44→16:06)
[2022-09-25] MEDS: POTASSIUM CHLORIDE 20 MEQ TAB.PRT.SR PO SCH (09:45)
[2022-09-25] MEDS: risperiDONE 1 MG TABLET PO SCH ×2 (09:45→16:06)
--- NOTE | 2022-09-25 13:29 | NUR ---
GPS/RN PT REFUSED KIDNEYS US. EXPLAINED THE PROCEDURE.OFFERED X3
[2022-09-25 16:00] VITALS: BP 147/54
[2022-09-25 20:21] VITALS: BP 119/60
[2022-09-26 07:38] LABS: CALCIUM, SERUM 8.7 mg/dL (8.5-10.1); CREATININE 1.2 mg/dL (0.6-1.3); POTASSIUM 4.4 mmol/L (3.5-5.1)
[2022-09-26 08:00] VITALS: BP 144/71
[2022-09-26] MEDS: risperiDONE 1 MG TABLET PO SCH ×2 (09:38→17:10)
[2022-09-26] MEDS: POTASSIUM CHLORIDE 20 MEQ TAB.PRT.SR PO SCH (09:38)
[2022-09-26] MEDS: CLONIDINE HCL 0.1 MG TABLET PO SCH (09:38)
[2022-09-26] MEDS: DIVALPROEX SODIUM 250 MG TABLET.DR PO SCH ×3 (09:38→17:10)
[2022-09-26] MEDS: AMLODIPINE BESYLATE 5 MG TABLET PO SCH (09:39)
[2022-09-26] MEDS: FUROSEMIDE 40 MG TABLET PO SCH (09:39)
--- NOTE | 2022-09-26 09:46 | NUR ---
MANAN Initial Discharge Plan: Patient currently resides at a Independent Living located at [address] [address]; [phone]. MANAN will contact the [facility] and corry Reich ([phone]) will be notified. MANAN will work with the MD and family to help coordinate appropriate discharge.
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
--- NOTE | 2022-09-26 09:47 | NUR ---
Treatment Plan: Pt refused to sign treatment plan and was suspicious of staff.
--- NOTE | 2022-09-26 09:50 | NUR ---
Independent Living Contact: SW contacted [facility] [address] [place] [address]; [phone] and spoke with Bella turner who stated that she is unsure if pt well return back and would need to discuss with family that pt would possibly need a SNF.
--- NOTE | 2022-09-26 11:31 | NUR ---
Facility Contacts: MANAN spoke with Bella turner from pt's Independent living [phone] who stated that family and their facility all want pt to go to [facility]. MANAN contacted Floyd Orozco from [facility] ([phone]) (F:[phone]) and faxed over pt's H & P, progress notes, and medication list for placement. Floyd will follow up with this display card writer if pt is accepted.
--- NOTE | 2022-09-26 14:03 | NUR ---
SW Family Contact: SW notified pt's son Damir ([phone]) and left a voicemail discussing treatment/discharge planning. SW in detail stated that pt's Independent Living stated that he cannot return back due to not being able to provide the care but would want pt to go to [facility] that they work with.
--- NOTE | 2022-09-26 14:25 | NUR ---
MANAN Family Contact: MANAN spoke with pt's son Damir ([phone]) who stated that he would not want pt to return back to the Independent Living that he was at and that they did not provide the appropriate care. He stated that he would want pt to go to the long-term.
[2022-09-26 16:00] VITALS: BP 160/74
[2022-09-26 20:00] VITALS: BP 129/86
[2022-09-27 07:59] VITALS: BP 147/73
[2022-09-27] MEDS: DIVALPROEX SODIUM 250 MG TABLET.DR PO SCH ×3 (08:28→16:57)
[2022-09-27] MEDS: FUROSEMIDE 40 MG TABLET PO SCH (08:28)
[2022-09-27] MEDS: CLONIDINE HCL 0.1 MG TABLET PO SCH (08:29)
[2022-09-27] MEDS: AMLODIPINE BESYLATE 5 MG TABLET PO SCH (08:29)
[2022-09-27] MEDS: risperiDONE 1 MG TABLET PO SCH ×2 (08:29→16:57)
[2022-09-27] MEDS: POTASSIUM CHLORIDE 20 MEQ TAB.PRT.SR PO SCH (08:29)
[2022-09-27 15:56] VITALS: BP 129/73
[2022-09-27 19:52] VITALS: BP 129/59
[2022-09-28 08:00] VITALS: BP 121/69
[2022-09-28] MEDS: FUROSEMIDE 40 MG TABLET PO SCH (09:37)
[2022-09-28] MEDS: risperiDONE 1 MG TABLET PO SCH ×2 (09:37→17:34)
[2022-09-28] MEDS: DIVALPROEX SODIUM 250 MG TABLET.DR PO SCH ×3 (09:38→17:34)
[2022-09-28] MEDS: AMLODIPINE BESYLATE 5 MG TABLET PO SCH (09:38)
[2022-09-28] MEDS: CLONIDINE HCL 0.1 MG TABLET PO SCH (09:38)
[2022-09-28] MEDS: POTASSIUM CHLORIDE 20 MEQ TAB.PRT.SR PO SCH (09:38)
[2022-09-28 16:00] VITALS: BP 119/71
[2022-09-28 20:15] VITALS: BP 120/76
[2022-09-29 08:00] VITALS: BP 136/77
[2022-09-29] MEDS: AMLODIPINE BESYLATE 5 MG TABLET PO SCH (08:34)
[2022-09-29] MEDS: risperiDONE 1 MG TABLET PO SCH ×2 (08:34→16:22)
[2022-09-29] MEDS: DIVALPROEX SODIUM 250 MG TABLET.DR PO SCH ×3 (08:34→16:22)
[2022-09-29] MEDS: POTASSIUM CHLORIDE 20 MEQ TAB.PRT.SR PO SCH (08:34)
[2022-09-29] MEDS: CLONIDINE HCL 0.1 MG TABLET PO SCH (08:35)
[2022-09-29] MEDS: FUROSEMIDE 40 MG TABLET PO SCH (08:35)
--- NOTE | 2022-09-29 09:20 | NUR ---
RN Notes: Received pt. awake in bed, responsive to staffs, no distress and no agitation noted. Ate 100% for breakfast and compliant on meds. Encouraged to verbalize feelings and motivated to attend group activity. Pt. isolates in the room and needs attended and will continue to monitor for safety.
--- NOTE | 2022-09-29 11:24 | NUR ---
Court Notification: MANAN contacted pt's son Damir ([phone]) and left a voicemail of pt's 1464 hearing.
--- NOTE | 2022-09-29 14:32 | NUR ---
SW Court Hearing: Patient's court hearing for 0690 was today and it was upheld for GD.
[2022-09-29 16:00] VITALS: BP 136/63
--- NOTE | 2022-09-29 19:30 | NUR ---
GPS RN NOTE, RECEIVED PATIENT AWAKE AND IN BED, NO S/S OR COMPLAINTS OF PAIN AT THIS TIME. PATIENT IS DISPLAYING NO S/S OF APPARENT DISTRESS AT THIS TIME. PATIENT BREATHING IS UNLABORED WITH EQUAL RISE AND FALL OF THE CHEST. PATIENT IS ALERT AND ORIENTED X 3 ON ROOM AIR WITH A SPO2 98%. PATIENT IS COMPLIANT WITH MEDICATIONS, CALM, POLITE, AND COOPERATIVE. PATIENT DENIES SUICIDAL AND HOMICIDAL IDEATIONS AT THIS TIME. PATIENT ASSISTED WITH TURNING AND REPOSITIONING Q2HR AND PRN FOR COMFORT AND CIRCULATION. PATIENT HAS NO NEEDS AT THIS TIME. PATIENT EDUCATED ON THE USE OF THE CALL GRACE. PATIENT BED SIDE RAILS UP X 2 FOR SAFETY. PATIENT BED IS LOCKED, LOW, WITH BED ALARM ON. WILL CONTINUE TO MONITOR THIS PATIENT Q15 MINUTES WITH THE HELP OF STAFF TO MAINTAIN SAFETY.
[2022-09-29 20:16] VITALS: BP 133/67
[2022-09-30 08:00] VITALS: BP 128/71
--- NOTE | 2022-09-30 09:10 | NUR ---
SNF Referral: MANAN sent clinicals to [facility] to Lesleyjose turner ([phone]) and sent clinicals for placement. SW sent H & P, progress notes, and medication list.
--- NOTE | 2022-09-30 09:10 | NUR ---
SW Family Contact: SW spoke with pt's son Damir ([phone]) and discussed placement he is agreeable of this press writer to send clinicals to [facility].
--- NOTE | 2022-09-30 09:14 | NUR ---
SNF Contact: SW spoke with [facility] to Lesley turner ([phone]) who stated pt is accepted.
[2022-09-30] MEDS: AMLODIPINE BESYLATE 5 MG TABLET PO SCH (09:29)
[2022-09-30] MEDS: risperiDONE 1 MG TABLET PO SCH ×2 (09:29→16:55)
[2022-09-30] MEDS: POTASSIUM CHLORIDE 20 MEQ TAB.PRT.SR PO SCH (09:29)
[2022-09-30] MEDS: FUROSEMIDE 40 MG TABLET PO SCH (09:29)
[2022-09-30] MEDS: CLONIDINE HCL 0.1 MG TABLET PO SCH (09:29)
[2022-09-30] MEDS: DIVALPROEX SODIUM 250 MG TABLET.DR PO SCH ×3 (09:29→16:54)
--- NOTE | 2022-09-30 11:06 | NUR ---
SW Family Contact: SW spoke with pt's son Damir ([phone]) and discussed placement and what he would want. Son expressed that he did not like the Independent Living he was at and does not want him to go to a SNF that they recommended. He stated he would want pt to go to [facility] and would want Dr. Ramey to follow.
[2022-09-30 16:00] VITALS: BP 119/58
[2022-09-30 20:00] VITALS: BP 154/73
[2022-10-01 08:00] VITALS: BP 132/69
[2022-10-01] MEDS: POTASSIUM CHLORIDE 20 MEQ TAB.PRT.SR PO SCH (08:07)
[2022-10-01] MEDS: risperiDONE 1 MG TABLET PO SCH ×2 (08:07→16:23)
[2022-10-01] MEDS: DIVALPROEX SODIUM 250 MG TABLET.DR PO SCH ×3 (08:07→16:23)
[2022-10-01] MEDS: AMLODIPINE BESYLATE 5 MG TABLET PO SCH (08:07)
[2022-10-01] MEDS: FUROSEMIDE 40 MG TABLET PO SCH (08:07)
[2022-10-01] MEDS: CLONIDINE HCL 0.1 MG TABLET PO SCH (08:08)
--- NOTE | 2022-10-01 09:30 | NUR ---
RN Notes: Received pt. awake in bed, guarded upon approached and responsive to staffs. Ate 100% for breakfast and compliant on meds. Encouraged to verbalize feelings and encouraged to take shower. Pt. isolates in the room and needs attended. Will continue to monitor for safety.
[2022-10-01 16:00] VITALS: BP 123/63
[2022-10-01] MEDS: LORAZEPAM 1 MG TABLET PO PRN (22:48)
--- NOTE | 2022-10-01 22:48 | NUR ---
GPS RN NOTE, PATIENT HAS A COMPLAINT OF FEELING ANXIOUS AND IS REQUESTING ATIVAN AT THIS TIME. PATIENT VITAL SIGNS ARE STABLE. GAVE ATIVAN 1MG PO Q6HR PRN ORDERED. WILL REASSESS FOR ANXIETY AND I WILL CONTINUE TO MONITOR THIS PATIENT WITH THE HELP OF STAFF.
[2022-10-02 08:00] VITALS: BP 151/72
[2022-10-02] MEDS: FUROSEMIDE 40 MG TABLET PO SCH (08:27)
[2022-10-02] MEDS: risperiDONE 1 MG TABLET PO SCH ×2 (08:27→16:16)
[2022-10-02] MEDS: POTASSIUM CHLORIDE 20 MEQ TAB.PRT.SR PO SCH (08:27)
[2022-10-02] MEDS: DIVALPROEX SODIUM 250 MG TABLET.DR PO SCH ×3 (08:27→16:16)
[2022-10-02] MEDS: AMLODIPINE BESYLATE 5 MG TABLET PO SCH (08:28)
[2022-10-02] MEDS: CLONIDINE HCL 0.1 MG TABLET PO SCH (08:28)
[2022-10-02 16:00] VITALS: BP 132/66
[2022-10-02 20:28] VITALS: BP 139/65
--- NOTE | 2022-10-02 23:00 | NUR ---
GPS NOTE PATIENT RECEIVED IN BED, ASLEEP, BUT EASILY AROUSABLE A&O 2-3; EASILY AGITATED, IRRITABLE. NO S/S OF RESP DISTRESS, NO SOB OR COUGH, NON-LABORED AND EQUAL BREATHING. PT COMPLIANT WITH MEDICATIONS. PATIENT NOTED TO BE AMBULATORY WITH STEADY GAIT. HAS EMOTIONAL OUTBURSTS. NEED MINIMAL ASSIST WITH ADL'S. ALL NEEDS ATTENDED AND ANTICIPATED. BED IN LOWEST POSITION, SIDE RAILS UP X2, OTHER SAFETY PRECAUTIONS IN PLACE. WILL CONTINUE TO MONITOR THROUGHOUT THE NIGHT Q15MIN FOR SAFETY AND BEHAVIOR.
--- NOTE | 2022-10-03 06:59 | NUR ---
GPS NOTE PATIENT REMAINED IN BEDROOM THE WHOLE NIGHT, A&O 2-3. NO S/S OF RESP DISTRESS, NO SOB OR COUGH, NON-LABORED AND EQUAL BREATHING. PT COMPLIANT WITH MEDICATIONS. PATIENT NOTED TO BE AMBULATORY WITH STEADY GAIT. PT WAS QUIET THROUGHOUT THE WHOLE NIGHT. NEED MINIMAL ASSIST WITH ADL'S. ALL NEEDS ATTENDED. BED IN LOWEST POSITION, SIDE RAILS UP X2, OTHER SAFETY PRECAUTIONS IN PLACE. WILL ENDORSE TO DAYSHIFT NURSE TO CONTINUE CARE.
[2022-10-03 08:00] VITALS: BP 135/60
[2022-10-03] MEDS: FUROSEMIDE 40 MG TABLET PO SCH (09:06)
[2022-10-03] MEDS: DIVALPROEX SODIUM 250 MG TABLET.DR PO SCH ×3 (09:06→17:32)
[2022-10-03] MEDS: POTASSIUM CHLORIDE 20 MEQ TAB.PRT.SR PO SCH (09:06)
[2022-10-03] MEDS: AMLODIPINE BESYLATE 5 MG TABLET PO SCH (09:06)
[2022-10-03] MEDS: risperiDONE 1 MG TABLET PO SCH ×2 (09:07→17:32)
[2022-10-03] MEDS: CLONIDINE HCL 0.1 MG TABLET PO SCH (09:08)
[2022-10-03 16:00] VITALS: BP 134/56
[2022-10-03 19:48] VITALS: BP 134/73
[2022-10-04 08:00] VITALS: BP 120/63
[2022-10-04] MEDS: FUROSEMIDE 40 MG TABLET PO SCH (09:02)
[2022-10-04] MEDS: DIVALPROEX SODIUM 250 MG TABLET.DR PO SCH ×3 (09:02→17:23)
[2022-10-04] MEDS: risperiDONE 1 MG TABLET PO SCH ×2 (09:03→17:24)
[2022-10-04] MEDS: AMLODIPINE BESYLATE 5 MG TABLET PO SCH (09:03)
[2022-10-04] MEDS: POTASSIUM CHLORIDE 20 MEQ TAB.PRT.SR PO SCH (09:03)
[2022-10-04] MEDS: CLONIDINE HCL 0.1 MG TABLET PO SCH (09:04)
--- NOTE | 2022-10-04 11:54 | NUR ---
SW Family Contact: SW spoke with pt's son Damir ([phone]) and notified that pt will be discharging end of this week to [facility] and he was agreeable of this.
[2022-10-04 16:10] VITALS: BP 158/69
[2022-10-05 08:00] VITALS: BP 140/67
--- NOTE | 2022-10-05 08:09 | NUR ---
MANAN EARLY DISCHARGE ENTRY (10/07/2022): Patient will be discharged to correction facility, [facility], located at [facility] [place] [address] ([phone]). Please arrange ambulance transportation at 1PM. workers compensation coordinator spoke with Lesley daner ([phone]), who stated patient will be accepted at the facility today. Patients corry Reich ([phone])is aware and agreeable. Patient is alert and oriented x3 and is unable to plan for self-care. Patient denies any suicidal or homicidal ideation. Patient is aware and agreeable with discharge plans. Patient will follow-up at the facility with Dr. Ramey (psychiatrist) [address] [address]; ([phone]) and ([employer] Aide) Dr. Dawn [address] [facility] [address], [place] [address]; ([phone]).
[2022-10-05] MEDS: risperiDONE 1 MG TABLET PO SCH ×2 (08:50→16:28)
[2022-10-05] MEDS: DIVALPROEX SODIUM 250 MG TABLET.DR PO SCH ×3 (08:51→16:28)
[2022-10-05] MEDS: POTASSIUM CHLORIDE 20 MEQ TAB.PRT.SR PO SCH (08:51)
[2022-10-05] MEDS: CLONIDINE HCL 0.1 MG TABLET PO SCH (08:51)
[2022-10-05] MEDS: AMLODIPINE BESYLATE 5 MG TABLET PO SCH (08:51)
[2022-10-05] MEDS: FUROSEMIDE 40 MG TABLET PO SCH (08:52)
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
[2022-10-05 16:00] VITALS: BP 124/66
[2022-10-06 08:00] VITALS: BP 162/79
[2022-10-06] MEDS: CLONIDINE HCL 0.1 MG TABLET PO SCH (08:15)
[2022-10-06] MEDS: FUROSEMIDE 40 MG TABLET PO SCH (08:15)
[2022-10-06] MEDS: DIVALPROEX SODIUM 250 MG TABLET.DR PO SCH ×3 (08:15→16:24)
[2022-10-06] MEDS: risperiDONE 1 MG TABLET PO SCH ×2 (08:15→16:24)
[2022-10-06] MEDS: POTASSIUM CHLORIDE 20 MEQ TAB.PRT.SR PO SCH (08:15)
[2022-10-06] MEDS: AMLODIPINE BESYLATE 5 MG TABLET PO SCH (08:17)
[2022-10-06 09:30] VITALS: BP 133/71
--- NOTE | 2022-10-06 10:35 | NUR ---
RN Notes: Received pt. awake in bed, responsive to staffs, no distress and no agitation noted. Ate 100% for breakfast, compliant on meds. Pt. was encouraged to take shower and took shower after interactions. Encouraged to verbalize feelings and motivated to attend group activity and went to the activity room to watch tv. Needs attended and will continue to monitor for safety.
--- NOTE | 2022-10-06 10:48 | NUR ---
Redness noted on the left abdominal folds and wound consult ordered.
[2022-10-06 16:00] VITALS: BP 146/77
[2022-10-06 20:00] VITALS: BP 161/74
--- NOTE | 2022-10-06 22:30 | NUR ---
GPS RN NOTE, PATIENT HAS A COMPLAINT OF HEARING VOICES. PATIENT STATED, " THE VOICES ARE INTENSE AND ARE ATTACKING IN THIS ROOM I NEED TO CHANGE ROOMS ". PATIENT GIVEN FOOD, MOVED TO [facility], AND INSTRUCTED ON HOW TO DO SQUARE BREATHING EXERCISES. WILL CONTINUE TO MONITOR THIS PATIENT WITH THE HELP OF STAFF.
--- NOTE | 2022-10-06 22:41 | NUR ---
GPS RN NOTE, PATIENT HAS A COMPLAINT OF NOT BEING ABLE TO SLEEP AND IS REQUESTING AMBIEN AT THIS TIME. PATIENT VITAL SIGNS ARE STABLE. GAVE AMBIEN 5MG PO HS PRN ORDERED. WILL REASSESS FOR INSOMNIA AND I WILL CONTINUE TO MONITOR THIS PATIENT WITH THE HELP OF STAFF.
[2022-10-07] MEDS: LORAZEPAM 1 MG TABLET PO PRN (03:49)
[2022-10-07 08:00] VITALS: BP 100/72
[2022-10-07] MEDS: POTASSIUM CHLORIDE 20 MEQ TAB.PRT.SR PO SCH (08:24)
[2022-10-07] MEDS: DIVALPROEX SODIUM 250 MG TABLET.DR PO SCH ×2 (08:25→12:18)
[2022-10-07] MEDS: risperiDONE 1 MG TABLET PO SCH (08:26)
[2022-10-07 08:29] VITALS: BP 100/72
[2022-10-07] MEDS: AMLODIPINE BESYLATE 5 MG TABLET PO SCH (08:29)
[2022-10-07] MEDS: CLONIDINE HCL 0.1 MG TABLET PO SCH (08:29)
[2022-10-07] MEDS: FUROSEMIDE 40 MG TABLET PO SCH (08:29)
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
--- NOTE | 2022-10-07 10:00 | NUR ---
Report given to Perez SIMMONS over the facility.
--- NOTE | 2022-10-07 13:24 | NUR ---
RN-DISCHARGE NOTES PATIENT HAD A DISCHARGE ORDER FROM DR. CLEVELAND ( PSYCHIATRIST) DR. KRAFT ( ETHNOGRAPHIC MATERIALS CONSERVATOR) MEDICALLY CLEARED PATIENT. PATIENT REFUSED SKIN ASSESSMENT AND REFUSED PICTURE TAKEN. STATED" NO MORE PICTURE FOR ME PLEASE". PATIENT LEFT THE UNIT IN STABLE CONDITION A/O X3, DID NOT VERBALIZE SI/HI,DENIES VISUAL/AUDITORY HALLUCINATIONS AT THE TIME OF DISCHARGE. REPORT WAS GIVEN TO YUDI( RN FACILITY STAFF). PATIENT WAS RESEARCH GENETICIST BY AMBULANCE VIA GURNEY WITH TWO STAFF ASSIST. ALL BELONGINGS WAS GIVEN BACK TO THE PATIENT.
== END 2022-10-07 13:23 | DRG 885 ==
LOC: ER 18:36 → GPS 23:56
PROVIDERS: ADMIT Psychiatry & Neurology Psychiatry; ATTEND Internal Medicine
DX: F25.0 Schizoaffective disorder, bipolar type (principal); N17.0 Acute kidney failure with tubular necrosis; N18.9 Chronic kidney disease, unspecified; Z68.41 Body mass index [BMI] 40.0-44.9, adult; E11.9 Type 2 diabetes mellitus without complications; Z79.899 Other long term (current) drug therapy; E11.22 Type 2 diabetes mellitus with diabetic chronic kidney disease; I12.9 Hypertensive chronic kidney disease with stage 1 through stage 4 chronic kidney disease, or unspecified chronic kidney disease; E66.01 Morbid (severe) obesity due to excess calories; F32.9 Major depressive disorder, single episode, unspecified; Z91.81 History of falling; R27.8 Other lack of coordination; R53.1 Weakness; Z73.6 Limitation of activities due to disability
CPT/HCPCS: 36415; 80048-TC; 80061-TC; 80076-TC; 81001; 82962-TC; 85025-TC; 87081-TC; 97110-TC; 97530-TC; C9803; G0480; J1200; J1630; J2060